=== PATIENT | female | born 1970 | race American Indian/Alaskan Native ===

== ENCOUNTER 2017-04-06 12:41 | Emergency (ER) | payer MEDICAID ==
[2017-04-06 14:51] VITALS: BP 144/89
[2017-04-06 15:49] LABS: Bacteria,Urine 1+ /HPF (Negative); Bilirubin,Urine NEG (Negative); Blood,Urine NEG (Negative); Ketones,Urine NEG (Negative); Leukocyte Esterase,Urine NEG (Negative); Mucus,Urine 1+ /HPF; Nitrite,Urine NEG (Negative); Protein,Urine <15 mg/dL mg/dL (Negative); Urobilinogen,Urine < 2.0 mg/dL (<2.0)
--- NOTE | 2017-04-06 15:52 | XRay Report ---
FINAL REPORT PROCEDURE: XR HAND 2V RT TECHNIQUE: RIGHT hand radiographs, AP and lateral views. HISTORY: trauma RT HAND COMPARISON: No prior studies are available for comparison. FINDINGS: Fracture (s) and/or Dislocation(s): None . Alignment: Normal . Joint space(s): Normal . Soft tissues: Normal . Bone mineralization: Normal . Foreign bodies: None . IMPRESSION: Normal Examination .
--- NOTE | 2017-04-06 17:06 | Emergency Department Report ---
HPI - General Chief Complaint: Extremity Injury, Upper Time Seen by Provider: 04/06/17 17:01 - HPI HPI: This is a 46 year-old female presents the emergency department with 2 complaints. First, the patient has been having right thumb and some hand pain for the past 1-2 weeks since the patient fell while roller skating and tried to brace herself with her hands. She denies hitting her head or any loss of consciousness. She is right-hand dominant. There was some swelling and she felt like there was warmth but that has improved with some ice and the patient has taken some antibiotics. Which brings us to the second complaint, which is that she believes she had has a urinary tract infection. The patient was having some dysuria as well as a "bump" towards the groin. She took a 7 day course of Bactrim, that she got from her mother, and says that her symptoms have since improved. She has a past nuchal history of asthma. She does not have a primary care physician. She has also been taking ibuprofen and meloxicam intermittently for her discomfort. No recent travel or sick contacts at home. She denies any vaginal bleeding, vaginal discharge or any current abdominal or pelvic pain. ED Past Medical Hx - Past Medical History Hx Asthma: Yes - Surgical History Past Surgical History?: No - Social History Smoking Status: Never Smoker Substance Use Type: None - Medications Home Medications: Home Medications Medication Instructions Recorded Confirmed Last Taken Type Ibuprofen [Motrin] 800 mg PO Q8H #30 tablet 05/13/14 Unknown Rx methOCARBAMOL [Robaxin] 500 mg PO BID #30 tab 05/13/14 Unknown Rx traMADol [Ultram 50 MG tab] 50 mg PO Q6HR PRN #10 tablet 04/06/17 Unknown Rx ED Review of Systems ROS: Stated complaint: HAND/LEG PAIN Other details as noted in HPI Comment: All other systems reviewed and negative Constitutional: denies: chills, fever Eyes: denies: eye pain, eye discharge, vision change ENT: denies: ear pain, throat pain Respiratory: denies: cough, shortness of breath, wheezing Cardiovascular: denies: chest pain, palpitations Genitourinary: dysuria. denies: hematuria, discharge Musculoskeletal: arthralgia. denies: back pain Skin: denies: rash, change in color Neurological: denies: headache, weakness, paresthesias Physical Exam - Physical Exam Vital Signs: Vital Signs 04/06/17 14:45 Temperature 98.7 F Pulse Rate 63 Respiratory 18 Rate Blood Pressure 144/89 O2 Sat by Pulse 100 Oximetry Physical Exam: GENERAL: The patient is well-developed well-nourished. HENT: Normocephalic. Atraumatic. Patient has moist mucous membranes. EYES: Extraocular motions are intact. Pupils equal reactive to light bilaterally. NECK: Supple. Trachea is midline. CHEST/LUNGS: Clear to auscultation. There is no respiratory distress noted. HEART/CARDIOVASCULAR: Regular. There is no tachycardia. There is no gallop rub or murmur. ABDOMEN: Abdomen is soft, nontender. Patient has normal bowel sounds. SKIN: Skin is warm and dry. There is no appreciable erythema, fluctuance or warmth to the area that the patient is having pain in her thumb and/or hand. NEURO: The patient is awake, alert, and oriented. The patient is cooperative. The patient has no focal neurologic deficits. The patient has normal speech. MUSCULOSKELETAL: Mild tenderness to palpation to the base of the right thumb and dorsal hand but no obvious deformity. There is no limitation range of motion. [employer]yer strength is 5 out of 5 bilaterally. Cap refill less than 2 seconds. Radial pulses +2 over 4 bilaterally. ED Course Vital Signs 04/06/17 14:45 Temperature 98.7 F Pulse Rate 63 Respiratory 18 Rate Blood Pressure 144/89 O2 Sat by Pulse 100 Oximetry ED Medical Decision Making - Radiology Data Radiology results: image reviewed interpreted by me: X-ray of the right hand does not show fracture, dislocation or any acute process. - Medical Decision Making 46-year-old female presents with a one to two-week history of right thumb and/ or hand pain after she fell and tried to brace herself with her hand. X-ray does not show any fracture, dislocation or any acute process. No signs of any cellulitis, abscess. She may have some tendinitis or even possibly tendon injury but she is able to move the hand and thumb and does not appear to be in any distress. She will be placed in a thumb spica and given a referral for orthopedist as well as some pain medication for home. The patient also complained of a possible UTI and she was having some dysuria previously as well as a previous bump towards the groin. She says that has resolved. Urinalysis was checked and there is no urinary tract infection. The patient returned a one -week history of Bactrim that she got from a family member that could've treated any previous cellulitis of the hand or any previous urinary tract infection. Vital signs stable including being afebrile. She appears safe for discharge home at this time. - Differential Diagnosis cellulitis, tendinitis, fracture, dislocation, UTI Critical Care Time: No Critical care attestation.: If time is entered above; I have spent that time in minutes in the direct care of this critically ill patient, excluding procedure time. ED Disposition Clinical Impression: Pain of right thumb, Right hand pain Disposition: TO HOME OR SELFCARE Is pt being admited?: No Condition: Stable Instructions: Finger Sprain (ED), Arthralgia (ED) Additional Instructions: Please follow up with a primary care physician in the next few days. I have given him a referral for a local orthopedist, Dr. Friedman, to follow up regarding your thumb and/or hand pain. You have been placed in a thumb spica splint that you should use until follow-up with the orthopedist. Return to the emergency Department with any worsening of your symptoms or any acute distress. You have been prescribed a medication that is sedating and therefore should not be taken prior to driving, working, and responsible for children and in no way should be mixed with alcohol of any quantity. Prescriptions: traMADol [Ultram 50 MG tab] 50 mg PO Q6HR PRN #10 tablet PRN Reason: Pain Referrals: PRIMARY CAREMD [Primary Care Provider] - 3-5 Days LOREN FRIEDMAN MD [Staff Physician] - 3-5 Days [facility] [Outside] - 3-5 Days [facility] [Outside] - 3-5 Days [facility] [Outside] - 3-5 Days Time of Disposition: 17:05
== END 2017-04-06 17:22 | disposition home or self-care (01) ==
LOC: ED 12:41
DX: M79.641 Pain in right hand (principal); M79.644 Pain in right finger(s); M79.89 Other specified soft tissue disorders; R30.0 Dysuria; J45.909 Unspecified asthma, uncomplicated
CPT/HCPCS: 81001; 99283

== ENCOUNTER 2017-08-24 06:23 | Emergency (ER) | payer MEDICAID ==
[2017-08-24 07:42] VITALS: BP 114/81
[2017-08-24 18:37] LABS: Bilirubin,Urine NEG (Negative); Blood,Urine SM (Negative); Color,Urine Yellow (Yellow); Mucus,Urine FEW /HPF; Nitrite,Urine NEG (Negative); Protein,Urine <15 mg/dL mg/dL (Negative); Urobilinogen,Urine < 2.0 mg/dL (<2.0)
[2017-08-24 18:56] LABS: HCG Qualitative,Urine Negative (Negative)
== END 2017-08-24 10:00 | disposition left against medical advice (07) ==
LOC: ED 06:23
DX: N39.0 Urinary tract infection, site not specified (principal); Z53.21 Procedure and treatment not carried out due to patient leaving prior to being seen by health care provider
CPT/HCPCS: 81001; 81025

== ENCOUNTER 2019-02-22 16:00 | Emergency (ER) | payer MEDICAID, MEDICARE ==
[2019-02-22] MEDS ORDERED: AMIDATE IV ONE ×2 (16:22→18:46)
[2019-02-22] MEDS ORDERED: TYLENOL PO ONE (16:50)
[2019-02-22] MEDS ORDERED: NACL 0.9% 1000 ML 1,000 ML IV ONE (16:53)
[2019-02-22 17:22] LABS: Basophils % (Auto) 0.4 % (0.0-1.8); Eosinophils % (Auto) 0.2 % (0.0-4.3); Hematocrit 20.2 % (30.3-42.9); Hemoglobin 6.4 gm/dl (10.1-14.3); Lymphocytes # (Auto) 1.8 K/mm3 (1.2-5.4); Mean Corpuscular HGB Conc 31 % (30-34); Mean Corpuscular Volume 78 fl (79-97); Monocytes # (Auto) 0.6 K/mm3 (0.0-0.8); Monocytes % (Auto) 5.1 % (0.0-7.3); Platelet Count 592 K/mm3 (140-440)
[2019-02-22 17:23] LABS: Red Cell Distribution Width 20.3 % (13.2-15.2)
[2019-02-22 17:32] LABS: INR 1.44 (0.87-1.13); Partial Thromboplastin Time 20.4 Sec. (24.2-36.6)
[2019-02-22 17:34] LABS: Bilirubin,Urine NEG (Negative); Blood,Urine NEG (Negative); Color,Urine Amber (Yellow); Mucus,Urine FEW /HPF; Urobilinogen,Urine < 2.0 mg/dL (<2.0)
[2019-02-22] MEDS ORDERED: ZOSYN/NS 4.5GM/100ML 4.5 GM/100 ML VIAL IV ONE (17:36)
[2019-02-22 17:47] LABS: Albumin 3.1 g/dL (3.9-5); Calcium 8.4 mg/dL (8.4-10.2)
[2019-02-22] MEDS ORDERED: MAGNESIUM SULFATE 2GM/50ML 2 GM/50 ML BAG IV ONE (17:48)
[2019-02-22 17:53] LABS: Free T4 (Free Thyroxine) 1.13 ng/dL (0.76-1.46)
[2019-02-22] MEDS ORDERED: ASPIRIN PO ONE (18:12)
[2019-02-22 18:14] LABS: Chol/HDL Ratio 4.03 %
--- NOTE | 2019-02-22 18:21 | Emergency Department Report ---
ED Altered Mental Status HPI - General Chief Complaint: Altered Mental Status Stated Complaint: SVT Time Seen by Provider: 02/22/19 16:21 Source: EMS, old records reviewed Mode of arrival: Stretcher Limitations: Altered Mental Status - History of Present Illness Initial Comments: 48 year old female with a known history of asthma and metastatic left breast cancer with metastases to the brain and lungs presents to the hospital with alteration of mental status. Patient's family/friends called EMS because patient was less active today, she was having intermittent shakes, and trouble breathing. The last 2 days patient has been feeling hot and cold and having a cough and increased wheezing and shortness of breath. EMS reports that patient had a SVT rhythm upon their arrival. EMS EKG reviewed and patient had SVT rate 204 with LVH and lateral T-wave inversions with ST depression. T-wave inversion is also noted inferiorly. The patient was awake but confused upon arrival with a SVT rate over 200 so preparations were made for cardioversion. Patient received etomidate 10 mg IV followed by synchronized cardioversion at 50J. Repeat cardioversion at 100J resulted in conversion to sinus rhythm rate 120s and improvement in mental status. Family states the patient does have some cardiac issues that resulted from her chemotherapy and is on metoprolol daily with last dose this morning. Patient apparently has been noncompliant with her chemotherapy since October and family was just made aware of this. Last week patient was admitted to [facility] for hallucinations. Family at the bedside confirms that pt is currently at her baseline mental status. Pt's girlfriend at bedside injuring about signing a power of immigration attorney to make medical decision on behalf of the patient. Patient's kids have also been calling the nurse stating that they are the ones authorized to make medical decisions about the patient. Pt's Oncologist is Dr Lockwood (affiliated with [facility] and [facility]) Pt does not have any recent medical record here for review since cancer diagnosis and treatment. - Related Data Previous Rx's Medication Instructions Recorded Last Taken Type Ibuprofen [Motrin] 800 mg PO Q8H #30 tablet 05/13/14 Unknown Rx methOCARBAMOL [Robaxin] 500 mg PO BID #30 tab 05/13/14 Unknown Rx traMADol [Ultram 50 MG tab] 50 mg PO Q6HR PRN #10 tablet 04/06/17 Unknown Rx Allergies Allergy/AdvReac Type Severity Reaction Status Date / Time No Known Allergies Allergy Unverified 05/13/14 07:49 ED Review of Systems ROS: Stated complaint: SVT Other details as noted in HPI Comment: Unobtainable due to pts medical conditions ED Past Medical Hx - Past Medical History Hx of Cancer: Yes (metastatic CA,BR CA,Brain Cancer) Hx Asthma: Yes - Surgical History Additional Surgical History: Left breast - Social History Smoking Status: Never Smoker - Medications Home Medications: Home Medications Medication Instructions Recorded Confirmed Last Taken Type Ibuprofen [Motrin] 800 mg PO Q8H #30 tablet 05/13/14 Unknown Rx methOCARBAMOL [Robaxin] 500 mg PO BID #30 tab 05/13/14 Unknown Rx traMADol [Ultram 50 MG tab] 50 mg PO Q6HR PRN #10 tablet 04/06/17 Unknown Rx ED Physical Exam - General Limitations: Altered Mental Status - Other Other exam information: General: Limited by alteration in mental status Head exam: Atraumatic, normocephalic Eyes exam: Normal appearance, pupils equal reactive to light ENT: Dry mucous membranes Neck exam: Normal inspection, full range of motion, no meningismus nontender Respiratory exam: Tachypnea, mild wheezing. Port to right chest wall Cardiovascular: Tachycardic regular rhythm Abdomen: Soft, nondistended, and nontender, with normal bowel sounds, no rebound, or guarding Extremity: Full range of motion normal inspection no deformity Back: Normal Inspection Neurologic: Alert, patient moving upper and lower extremities with good strength and sensation grossly intact Psychiatric: normal affect, normal mood Skin: Warm, dry, intact ED Course Vital Signs 02/22/19 02/22/19 02/22/19 16:04 16:16 16:31 Temperature 101.2 F H Pulse Rate 206 H 120 H Respiratory 30 H 22 25 H Rate Blood Pressure Blood Pressure [Right] O2 Sat by Pulse 100 Oximetry 02/22/19 02/22/19 02/22/19 16:45 17:01 17:15 Temperature Pulse Rate 130 H 124 H 120 H Respiratory 15 21 17 Rate Blood Pressure 88/69 87/49 101/60 Blood Pressure [Right] O2 Sat by Pulse 84 67 L Oximetry 02/22/19 02/22/19 02/22/19 17:19 17:31 17:37 Temperature Pulse Rate 121 H 120 H 121 H Respiratory 19 15 25 H Rate Blood Pressure 109/74 Blood Pressure 100/68 109/74 [Right] O2 Sat by Pulse 100 84 100 Oximetry 02/22/19 02/22/19 02/22/19 17:45 18:00 18:15 Temperature Pulse Rate 120 H 120 H 120 H Respiratory 22 22 13 Rate Blood Pressure 109/74 107/62 107/62 Blood Pressure [Right] O2 Sat by Pulse 97 Oximetry 02/22/19 02/22/19 02/22/19 18:30 18:45 19:00 Temperature Pulse Rate 118 H 111 H 107 H Respiratory 25 H 21 19 Rate Blood Pressure 97/56 95/50 96/51 Blood Pressure [Right] O2 Sat by Pulse 100 Oximetry 02/22/19 19:15 Temperature Pulse Rate 109 H Respiratory 18 Rate Blood Pressure 96/51 Blood Pressure [Right] O2 Sat by Pulse 100 Oximetry - Consultations Consultation #1: 02/22/19 18:23 case d/w DR Walsh, S electronic installer cardiology, will consult - Lab Data Result diagrams: 02/22/19 17:07 02/22/19 17:07 Lab Results 02/22/19 02/22/19 02/22/19 Range/Units 16:04 17:07 17:07 WBC 12.3 H (4.5-11.0) K/mm3 RBC 2.60 L (3.65-5.03) M/mm3 Hgb 6.4 L (10.1-14.3) gm/dl Hct 20.2 L (30.3-42.9) % MCV 78 L (79-97) fl MCH 24 L (28-32) pg MCHC 31 (30-34) % RDW 20.3 H (13.2-15.2) % Plt Count 592 H (140-440) K/mm3 Lymph % (Auto) 15.0 (13.4-35.0) % [place] % (Auto) 5.1 (0.0-7.3) % Eos % (Auto) 0.2 (0.0-4.3) % Baso % (Auto) 0.4 (0.0-1.8) % Lymph # 1.8 (1.2-5.4) K/mm3 [place] # 0.6 (0.0-0.8) K/mm3 Eos # 0.0 (0.0-0.4) K/mm3 Baso # 0.0 (0.0-0.1) K/mm3 Seg Neutrophils % 79.3 H (40.0-70.0) % Seg Neutrophils # 9.7 H (1.8-7.7) K/mm3 PT 17.2 H (12.2-14.9) Sec. INR 1.44 H (0.87-1.13) APTT 20.4 L (24.2-36.6) Sec. VBG pH (7.320-7.420) Sodium (137-145) mmol/L Potassium (3.6-5.0) mmol/L Chloride (98-107) mmol/L Carbon Dioxide (22-30) mmol/L Anion Gap mmol/L BUN (7-17) mg/dL Creatinine (0.7-1.2) mg/dL Estimated GFR ml/min BUN/Creatinine Ratio % Glucose (65-100) mg/dL Lactic Acid (0.7-2.0) mmol/L Calcium (8.4-10.2) mg/dL Magnesium (1.7-2.3) mg/dL Total Bilirubin (0.1-1.2) mg/dL AST (5-40) units/L ALT (7-56) units/L Alkaline Phosphatase (35-129) units/L Troponin T (0.00-0.029) ng/mL Total Protein (6.3-8.2) g/dL Albumin (3.9-5) g/dL Albumin/Globulin Ratio % Triglycerides (2-149) mg/dL Cholesterol (50-199) mg/dL LDL Cholesterol Direct (50-130) mg/dL HDL Cholesterol (40-59) mg/dL Cholesterol/HDL Ratio % TSH (0.270-4.200) mlU/mL Free T4 (0.76-1.46) ng/dL HCG, Qual (Negative) Urine Color J[place]yn (Yellow) Urine Turbidity Clear (Clear) Urine pH 5.0 (5.0-7.0) Ur Specific [place] 1.019 (1.003-1.030) Urine Protein 30 mg/dl (Negative) mg/dL Urine Glucose (UA) Neg (Negative) mg/dL Urine Ketones Neg (Negative) mg/dL Urine Blood Neg (Negative) Urine Nitrite Neg (Negative) Urine Bilirubin Neg (Negative) Urine Urobilinogen < 2.0 (<2.0) mg/dL Ur Leukocyte Esterase Neg (Negative) Urine WBC (Auto) 1.0 (0.0-6.0) /HPF Urine RBC (Auto) 3.0 (0.0-6.0) /HPF U Epithel Cells (Auto) < 1.0 (0-13.0) /HPF Urine Mucus Few /HPF Blood Type Antibody Screen 02/22/19 02/22/19 02/22/19 Range/Units 17:07 17:07 17:07 WBC (4.5-11.0) K/mm3 RBC (3.65-5.03) M/mm3 Hgb (10.1-14.3) gm/dl Hct (30.3-42.9) % MCV (79-97) fl MCH (28-32) pg MCHC (30-34) % RDW (13.2-15.2) % Plt Count (140-440) K/mm3 Lymph % (Auto) (13.4-35.0) % [place] % (Auto) (0.0-7.3) % Eos % (Auto) (0.0-4.3) % Baso % (Auto) (0.0-1.8) % Lymph # (1.2-5.4) K/mm3 [place] # (0.0-0.8) K/mm3 Eos # (0.0-0.4) K/mm3 Baso # (0.0-0.1) K/mm3 Seg Neutrophils % (40.0-70.0) % Seg Neutrophils # (1.8-7.7) K/mm3 PT (12.2-14.9) Sec. INR (0.87-1.13) APTT (24.2-36.6) Sec. VBG pH (7.320-7.420) Sodium 140 (137-145) mmol/L Potassium 5.2 H (3.6-5.0) mmol/L Chloride 98.5 (98-107) mmol/L Carbon Dioxide 20 L (22-30) mmol/L Anion Gap 27 mmol/L BUN 29 H (7-17) mg/dL Creatinine 3.9 H (0.7-1.2) mg/dL Estimated GFR 15 ml/min BUN/Creatinine Ratio 7 % Glucose 124 H (65-100) mg/dL Lactic Acid (0.7-2.0) mmol/L Calcium 8.4 (8.4-10.2) mg/dL Magnesium (1.7-2.3) mg/dL Total Bilirubin 0.40 (0.1-1.2) mg/dL AST 86 H (5-40) units/L ALT 39 (7-56) units/L Alkaline Phosphatase 77 (35-129) units/L Troponin T 0.234 H* (0.00-0.029) ng/mL Total Protein 7.3 (6.3-8.2) g/dL Albumin 3.1 L (3.9-5) g/dL Albumin/Globulin Ratio 0.7 % Triglycerides 203 H (2-149) mg/dL Cholesterol 117 (50-199) mg/dL LDL Cholesterol Direct 51 (50-130) mg/dL HDL Cholesterol 29 L (40-59) mg/dL Cholesterol/HDL Ratio 4.03 % TSH 3.850 (0.270-4.200) mlU/mL Free T4 1.13 (0.76-1.46) ng/dL HCG, Qual Negative (Negative) Urine Color (Yellow) Urine Turbidity (Clear) Urine pH (5.0-7.0) Ur Specific [place] (1.003-1.030) Urine Protein (Negative) mg/dL Urine Glucose (UA) (Negative) mg/dL Urine Ketones (Negative) mg/dL Urine Blood (Negative) Urine Nitrite (Negative) Urine Bilirubin (Negative) Urine Urobilinogen (<2.0) mg/dL Ur Leukocyte Esterase (Negative) Urine WBC (Auto) (0.0-6.0) /HPF Urine RBC (Auto) (0.0-6.0) /HPF U Epithel Cells (Auto) (0-13.0) /HPF Urine Mucus /HPF Blood Type Antibody Screen 02/22/19 02/22/19 02/22/19 Range/Units 17:07 17:07 17:07 WBC (4.5-11.0) K/mm3 RBC (3.65-5.03) M/mm3 Hgb (10.1-14.3) gm/dl Hct (30.3-42.9) % MCV (79-97) fl MCH (28-32) pg MCHC (30-34) % RDW (13.2-15.2) % Plt Count (140-440) K/mm3 Lymph % (Auto) (13.4-35.0) % [place] % (Auto) (0.0-7.3) % Eos % (Auto) (0.0-4.3) % Baso % (Auto) (0.0-1.8) % Lymph # (1.2-5.4) K/mm3 [place] # (0.0-0.8) K/mm3 Eos # (0.0-0.4) K/mm3 Baso # (0.0-0.1) K/mm3 Seg Neutrophils % (40.0-70.0) % Seg Neutrophils # (1.8-7.7) K/mm3 PT (12.2-14.9) Sec. INR (0.87-1.13) APTT (24.2-36.6) Sec. VBG pH 7.448 H (7.320-7.420) Sodium (137-145) mmol/L Potassium (3.6-5.0) mmol/L Chloride (98-107) mmol/L Carbon Dioxide (22-30) mmol/L Anion Gap mmol/L BUN (7-17) mg/dL Creatinine (0.7-1.2) mg/dL Estimated GFR ml/min BUN/Creatinine Ratio % Glucose (65-100) mg/dL Lactic Acid 2.20 H* (0.7-2.0) mmol/L Calcium (8.4-10.2) mg/dL Magnesium 1.30 L (1.7-2.3) mg/dL Total Bilirubin (0.1-1.2) mg/dL AST (5-40) units/L ALT (7-56) units/L Alkaline Phosphatase (35-129) units/L Troponin T (0.00-0.029) ng/mL Total Protein (6.3-8.2) g/dL Albumin (3.9-5) g/dL Albumin/Globulin Ratio % Triglycerides (2-149) mg/dL Cholesterol (50-199) mg/dL LDL Cholesterol Direct (50-130) mg/dL HDL Cholesterol (40-59) mg/dL Cholesterol/HDL Ratio % TSH (0.270-4.200) mlU/mL Free T4 (0.76-1.46) ng/dL HCG, Qual (Negative) Urine Color (Yellow) Urine Turbidity (Clear) Urine pH (5.0-7.0) Ur Specific [place] (1.003-1.030) Urine Protein (Negative) mg/dL Urine Glucose (UA) (Negative) mg/dL Urine Ketones (Negative) mg/dL Urine Blood (Negative) Urine Nitrite (Negative) Urine Bilirubin (Negative) Urine Urobilinogen (<2.0) mg/dL Ur Leukocyte Esterase (Negative) Urine WBC (Auto) (0.0-6.0) /HPF Urine RBC (Auto) (0.0-6.0) /HPF U Epithel Cells (Auto) (0-13.0) /HPF Urine Mucus /HPF Blood Type Antibody Screen 02/22/19 Range/Units 17:47 WBC (4.5-11.0) K/mm3 RBC (3.65-5.03) M/mm3 Hgb (10.1-14.3) gm/dl Hct (30.3-42.9) % MCV (79-97) fl MCH (28-32) pg MCHC (30-34) % RDW (13.2-15.2) % Plt Count (140-440) K/mm3 Lymph % (Auto) (13.4-35.0) % [place] % (Auto) (0.0-7.3) % Eos % (Auto) (0.0-4.3) % Baso % (Auto) (0.0-1.8) % Lymph # (1.2-5.4) K/mm3 [place] # (0.0-0.8) K/mm3 Eos # (0.0-0.4) K/mm3 Baso # (0.0-0.1) K/mm3 Seg Neutrophils % (40.0-70.0) % Seg Neutrophils # (1.8-7.7) K/mm3 PT (12.2-14.9) Sec. INR (0.87-1.13) APTT (24.2-36.6) Sec. VBG pH (7.320-7.420) Sodium (137-145) mmol/L Potassium (3.6-5.0) mmol/L Chloride (98-107) mmol/L Carbon Dioxide (22-30) mmol/L Anion Gap mmol/L BUN (7-17) mg/dL Creatinine (0.7-1.2) mg/dL Estimated GFR ml/min BUN/Creatinine Ratio % Glucose (65-100) mg/dL Lactic Acid (0.7-2.0) mmol/L Calcium (8.4-10.2) mg/dL Magnesium (1.7-2.3) mg/dL Total Bilirubin (0.1-1.2) mg/dL AST (5-40) units/L ALT (7-56) units/L Alkaline Phosphatase (35-129) units/L Troponin T (0.00-0.029) ng/mL Total Protein (6.3-8.2) g/dL Albumin (3.9-5) g/dL Albumin/Globulin Ratio % Triglycerides (2-149) mg/dL Cholesterol (50-199) mg/dL LDL Cholesterol Direct (50-130) mg/dL HDL Cholesterol (40-59) mg/dL Cholesterol/HDL Ratio % TSH (0.270-4.200) mlU/mL Free T4 (0.76-1.46) ng/dL HCG, Qual (Negative) Urine Color (Yellow) Urine Turbidity (Clear) Urine pH (5.0-7.0) Ur Specific [place] (1.003-1.030) Urine Protein (Negative) mg/dL Urine Glucose (UA) (Negative) mg/dL Urine Ketones (Negative) mg/dL Urine Blood (Negative) Urine Nitrite (Negative) Urine Bilirubin (Negative) Urine Urobilinogen (<2.0) mg/dL Ur Leukocyte Esterase (Negative) Urine WBC (Auto) (0.0-6.0) /HPF Urine RBC (Auto) (0.0-6.0) /HPF U Epithel Cells (Auto) (0-13.0) /HPF Urine Mucus /HPF Blood Type A NEGATIVE Antibody Screen Negative - Radiology Data Radiology results: report reviewed CHEST 1 VIEW, 02/22/2019 5:14 PM INDICATION: History of cancer. Altered mental status COMPARISON: No prior studies are available for comparison. FINDINGS: Support devices: A right-sided medication catheter is present with distal tip projecting over the expected position of the mid SVC Heart: The cardiac silhouette is upper limits of normal in size. Lungs/pleura: There is faint bilateral patchy parenchymal disease throughout both lungs with a small left pleural effusion. Additional findings: No additional acute findings. IMPRESSION: 1. Patchy bilateral parenchymal disease which may suggest either multifocal pneumonia or pulmonary edema with small left pleural effusion. - Medical Decision Making Patient required emergent stabilization upon arrival for alteration in mental status likely secondary to hypoperfusion to brain secondary to SVT. Once patient's heart rate was slowed down after cardioversion her mental status improved back to baseline. Patient does have a fever with reports of cough. Patient covered with vancomycin and Zosyn until definitive source can be identified. It is unclear at this time his renal insufficiency is old or new. Patient has elevated troponin without signs of ST elevation [place]. Aspirin provided. Cardiology consulted. Repeat troponin pending. Patient will require social work consultation to determine appropriate power of immigration attorney assignment since seems to be some conflict between the patient's girlfriend and her biological children. Case D/w Dr Maldonado who will dispo pt - Differential Diagnosis sepsis, arrhythmia, PE, thyroid disease, cardiac disease, encephalopathy Critical Care Time: Yes Critical care time in (mins) excluding proc time.: 35 Critical care attestation.: If time is entered above; I have spent that time in minutes in the direct care of this critically ill patient, excluding procedure time. ED Disposition Clinical Impression: SVT (supraventricular tachycardia), Fever, Breast cancer, Metastasis to brain, Metastasis to lung, Renal insufficiency, Hypomagnesemia, Anemia Disposition: OP ADMIT IP TO THIS HOSP Is pt being admited?: Yes Condition: Fair Time of Disposition: 18:28
[2019-02-22] MEDS ORDERED: VANCOMYCIN 1,750 MG in NACL 0.9% 500 ML 500 ML IV ONE (19:00)
--- NOTE | 2019-02-22 19:01 | XRay Report ---
CHEST 1 VIEW, 02/22/2019 5:14 PM INDICATION: History of cancer. Altered mental status COMPARISON: No prior studies are available for comparison. FINDINGS: Support devices: A right-sided medication catheter is present with distal tip projecting over the exp ected position of the mid SVC Heart: The cardiac silhouette is upper limits of normal in size. Lungs/pleura: There is faint bilateral patchy parenchymal disease throughout both lungs with a small left pleural effusion. Additional findings: No additional acute findings. IMPRESSION: 1. Patchy bilateral parenchymal disease which may suggest either multifocal pneumonia or pulmonary ed belinda with small left pleural effusion. Signer Name: Nini Carlos MD Signed: 02/22/2019 6:57 PM Workstation Name: [id number]
--- NOTE | 2019-02-22 19:46 | Event Note ---
Date: 02/22/19 48 YO Female with Breast Cancer with metastasis to liver,brain, lungs presents to ED for evaluation. Pt found to have poor prognosis. Pt family at bedside and declines admission to ICU and initiation of argessive medical care. Pt family informed of risks and benefits of agressive medical therapy. After family discussion-patient family elects to have end of life care and have the patient discharged home under hospice care. Pt is made DNR as per Daughter request. Pt medically optimized and discharged home under hospice care. 60 minutes Advanced care planning. EXAM: General: Lethargic, ill appearing, comfortable Head exam: Atraumatic, normocephalic Eyes exam: Normal appearance, pupils equal reactive to light ENT: Dry mucous membranes Neck exam: Normal inspection, full range of motion, no meningismus nontender Respiratory exam: Tachypnea, mild wheezing. Port to right chest wall Cardiovascular: Tachycardic regular rhythm Abdomen: Soft, nondistended, and nontender, with normal bowel sounds, no rebound, or guarding Extremity: Full range of motion normal inspection no deformity Back: Normal Inspection Neurologic: Alert, patient moving upper and lower extremities with good strength and sensation grossly intact Psychiatric: normal affect, normal mood Skin: Warm, dry, intact
[2019-02-23] MEDS ORDERED: MORPHINE ONE (15:48)
[2019-02-23 15:49] VITALS: BP 112/61
[2019-02-23] MEDS ORDERED: MORPHINE IV ONE (16:09)
== END 2019-02-23 16:12 | disposition admitted as inpatient to this hospital (09) ==
LOC: ED 16:00
DX: I47.1 Supraventricular tachycardia (principal); N28.9 Disorder of kidney and ureter, unspecified; E83.42 Hypomagnesemia; D64.9 Anemia, unspecified; J45.909 Unspecified asthma, uncomplicated; Z79.899 Other long term (current) drug therapy
CPT/HCPCS: 36415; 71045; 80053; 80061; 81001; 82140; 82805; 83735; 84439; 84443; 84484; 84703; 85025; 85610; 85730; 86850; 86900; 86901; 87040; 87086; 92960; 93005; 93010; 96361; 96365; 96366; 96368; 96375; 99291; J2270; J2543; J3370; J3475; J7040